=== PATIENT | female | born 2005 | race Caucasian/White ===

== ENCOUNTER → 2024-09-18 08:43 | Outpatient (REF) | payer OTHER, SELFPAY | LOC: HWRAD 08:43 | PROVIDERS: ATTENDING PHYSICIAN Specialist | DX: N28.1 Cyst of kidney, acquired (principal) | CPT/HCPCS: 76775 ==

== ENCOUNTER → 2025-05-23 11:05 | Outpatient (REF) | payer OTHER, SELFPAY | LOC: MRI 3T 11:05 | PROVIDERS: ATTENDING PHYSICIAN Specialist; FAMILY PHYSICIAN Internal Medicine | DX: Q61.3 Polycystic kidney, unspecified (principal); N28.1 Cyst of kidney, acquired; Z87.718 Personal history of other specified (corrected) congenital malformations of genitourinary system | CPT/HCPCS: 74183; A9575 ==